=== PATIENT | female | born 1945 | race Native Hawaiian/Other Pacific Islander ===

== ENCOUNTER 2016-12-30 04:13 | Observation (INO) | payer MEDICARE, OTHER ==
[2016-12-30 04:14] VITALS: BMI 28.3
--- NOTE | 2016-12-30 05:01 | C.PDOC ---
History Of Present Illness Patient presents to the ED with complaints of chest pain, palpitations, and some shortness of breath upon waking up. Patient states she became concerned thus prompting visit but denies an fever or chills. Time Seen by Provider: 12/30/16 05:01 Chief Complaint (Nursing): Chest Pain History Per: Patient History/Exam Limitations: no limitations Onset/Duration Of Symptoms: Mins Current Symptoms Are (Timing): Still Present Severity: Mild Pain Scale Rating Of: 4 Quality: "Pain" Associated Symptoms: denies: Nausea, Diaphoresis Recent travel outside of the [place]: No Past Medical History Reviewed: Historical Data, Nursing Documentation, Vital Signs Vital Signs: Last Vital Signs Temp 97.5 F L 12/30/16 04:31 Pulse 78 12/30/16 05:04 Resp 16 12/30/16 04:31 BP 130/63 12/30/16 05:04 Pulse Ox 96 12/30/16 06:04 - Medical History PMH: Asthma, Atrial Fibrillation, Cardia Arrhythmia (atrial fib), Diabetes (169 by medics), Gall Bladder Disease (+cholelithiasis), HTN, Hypercholesterolemia, Hypothyroidism Family History: States: No Known Family Hx - Social History Hx Tobacco Use: No Hx Alcohol Use: No Hx Substance Use: No - Immunization History Hx Tetanus Toxoid Vaccination: No Hx Influenza Vaccination: No Hx Pneumococcal Vaccination: No Review Of Systems Constitutional: Negative for: Fever, Chills, Sweats Cardiovascular: Positive for: Chest Pain, Palpitations Respiratory: Positive for: Shortness of Breath. Negative for: Cough Gastrointestinal: Negative for: Nausea, Vomiting, Abdominal Pain, Diarrhea Genitourinary: Negative for: Dysuria Musculoskeletal: Negative for: Back Pain Skin: Negative for: Rash, Lesions, Jaundice Neurological: Negative for: Weakness Psych: Negative for: Anxiety Physical Exam - Physical Exam Appears: Non-toxic, No Acute Distress Skin: Warm, Dry Head: Normacephalic Eye(s): bilateral: Normal Inspection Oral Mucosa: Moist Neck: Trachea Midline, Supple Chest: Symmetrical, No Deformity Cardiovascular: Rhythm Irregular Respiratory: No Rales, No Rhonchi, No Stridor, No Wheezing Gastrointestinal/Abdominal: Soft, No Tenderness, No Distention, No Guarding, No Rebound Back: Normal Inspection Extremity: Normal ROM, No Tenderness Extremity: Bilateral: Atraumatic, Normal Color And Temperature Neurological/Psych: Oriented x3, Normal Speech, Normal Cognition Gait: Steady ED Course And Treatment - Laboratory Results Result Diagrams: 12/30/16 05:31 12/30/16 05:31 ECG: Interpreted By Me, Viewed By Me ECG Rhythm: Atrial Fibrillation (75), Nonspecific Changes O2 Sat by Pulse Oximetry: 96 (room air ) Pulse Ox Interpretation: Normal - Radiology CXR: Interpreted by Me, Viewed By Me CXR Interpretation: Yes: Other (unchanged from 09/22/16). No: Infiltrates, Fracture, Pnemothorax Disposition Discussed With Dr.: Tres Hameed Comment: accepted the pt on his service and took over the care at 6:25 AM Doctor Will See Patient In The: Hospital Counseled Patient/Family Regarding: Studies Performed, Diagnosis - Disposition Disposition: HOSPITALIZED Disposition Time: 05:01 Condition: FAIR - POA Present On Arrival: None - Clinical Impression Clinical Impression: Atrial fibrillation, Chest pain - Scribe Statement The provider has reviewed the documentation as recorded by the Scribe Isabel Dutta All medical record entries made by the Scribe were at my direction and personally dictated by me. I have reviewed the chart and agree that the record accurately reflects my personal performance of the history, physical exam, medical decision making, and the department course for this patient. I have also personally directed, reviewed, and agree with the discharge instructions and disposition. Decision To Admit - Pt Status Changed To: Hospital Disposition Of: Observation - . Bed Request Type: Telemetry Admitting Physician: Tres Hameed Patient Diagnosis: Chest pain, Atrial fibrillation
[2016-12-30] MEDS ORDERED: Aspirin 325 mg EC Tablets PO STA (05:08)
[2016-12-30 05:35] LABS: BASO # 0.1 K/uL (0.0-0.2); BASO % 1.3 % (0.0-2.0); EOS # 0.3 K/uL (0.0-0.7); EOS % 5.2 % (0.0-4.0); HEMATOCRIT 43.8 % (34.0-47.0); LYMPH # 2.1 K/uL (1.0-4.3); LYMPH % 36.4 % (20.0-40.0); MEAN CELL VOLUME 77.8 fL (81.0-99.0); MEAN CORPUSCULAR HEMOGLOBIN 24.9 pg (27.0-31.0); MEAN PLATELET VOLUME 10.3 fL (7.2-11.7); MONO # 0.8 K/uL (0.0-0.8); MONO % 14.1 % (0.0-10.0); NRBC % 0.1 % (0.0-2.0); RED CELL DISTRIBUTION WIDTH 14.5 % (11.5-14.5); WHITE BLOOD COUNT 5.6 K/uL (4.8-10.8)
[2016-12-30 05:41] LABS: INR 1.1
[2016-12-30] MEDS ORDERED: Aspirin 325 mg EC Tablets PO ONE (05:41)
[2016-12-30 05:50] LABS: CHLORIDE 102 mmol/L (98-107); SODIUM 140 mmol/L (132-148)
[2016-12-30 05:51] LABS: POTASSIUM 4.1 mmol/L (3.6-5.2)
[2016-12-30 05:53] LABS: ALB/GLOB RATIO 1.8 (1.0-2.1); ALKALINE PHOSPHATASE 34 U/L (38-126); AST/SGOT 47 U/L (14-36); BILIRUBIN,TOTAL 0.7 mg/dL (0.2-1.3); CARBON DIOXIDE 24 mmol/L (22-30); GFR AFRICAN-AMERICAN > 60; TOTAL PROTEIN 7.6 g/dL (6.3-8.3)
[2016-12-30 05:54] LABS: ALT/SGPT 49 U/L (9-52); BLOOD UREA NITROGEN 17 mg/dL (7-17); CALCIUM 7.7 mg/dl (8.6-10.4); GLUCOSE,RANDOM 133 mg/dL (65-105)
[2016-12-30 05:59] LABS: RBC URINE 1 /hpf (0-3); URINE BILIRUBIN NEGATIVE (NEGATIVE); URINE BLOOD NEGATIVE (NEGATIVE); URINE COLOR Colorless (YELLOW); URINE GLUCOSE (UA) NORMAL (Normal); URINE KETONE NEGATIVE (NEGATIVE); URINE LEUKOCYTE ESTERASE NEG Leu/uL (Negative); URINE PROTEIN NEGATIVE (NEGATIVE); URINE UROBILINOGEN NORMAL mg/dL (0.2-1.0)
[2016-12-30] MEDS: (Novolog) Insulin Aspart, Recombinant 100 u/ml 10 ml vial SC SCH ×4 (08:09→21:40)
--- NOTE | 2016-12-30 08:41 | RAD ---
PROCEDURE: CHEST RADIOGRAPH, 1 VIEW HISTORY: chest pain COMPARISON: 09/22/2016 FINDINGS: LUNGS: Mild venous congestion. Bibasilar airspace opacities which may be related to prominent breast shadows. PLEURA: No pneumothorax or pleural fluid seen. CARDIOVASCULAR: Normal. OSSEOUS STRUCTURES: No significant abnormalities. VISUALIZED UPPER ABDOMEN: Normal. OTHER FINDINGS: None. IMPRESSION: Mild venous congestion. Bibasilar airspace opacities which may be related to prominent breast shadows.
[2016-12-30] MEDS ORDERED: FISH OIL PO SCH (10:00)
[2016-12-30] MEDS ORDERED: Levothyroxine 25 MCG TAB PO SCH ×2 (10:00→22:00)
[2016-12-30] MEDS ORDERED: CALCIUM CARBONATE 1200 MG PO SCH (10:00)
[2016-12-30] MEDS ORDERED: Omega-3-Acid Ethyl Esters 1 GM Cap PO SCH (10:00)
[2016-12-30] MEDS ORDERED: OMEGA PO SCH (10:00)
[2016-12-30] MEDS ORDERED: Ergocalciferol 50,000 Intl Units Cap PO SCH (10:00)
[2016-12-30] MEDS ORDERED: FATTY ACIDS PO SCH (10:00)
[2016-12-30] MEDS ORDERED: Omega-3-Acid Ethyl Esters 1 GM Cap PO ONE ×2 (12:00→12:15)
--- NOTE | 2016-12-30 15:19 | CP.PCM.CON ---
History of Present Illness - History of Present Illness History of Present Illness: 71 year old with DM, HTN admitted with CP, no ekg changes, neg TNI, no OK, for EST as out pt. no dissection or PE clinically, neg EST 4 years ago Review of Systems - Constitutional Constitutional: Anorexia, Weakness - EENT Eyes: absent: Discharge Ears: absent: Ear Discharge, Dizziness Nose/Mouth/Throat: absent: Epistaxis - Cardiovascular Cardiovascular: Chest Pain, Chest Pain at Rest. absent: Acrocyanosis, Diaphoresis, Leg Edema, Palpitations, Syncope - Respiratory Respiratory: absent: Cough, Dyspnea, Hemoptysis - Gastrointestinal Gastrointestinal: absent: Abdominal Pain, Diarrhea, Vomiting - Genitourinary Genitourinary: absent: Change in Urinary Stream Past Patient History - Infectious Disease Hx of Infectious Diseases: None - Past Medical History & Family History Past Medical History?: Yes - Past Social History Smoking Status: Never Smoked - CARDIAC Hx Atrial Fibrillation: Yes Hx Cardia Arrhythmia: Yes (atrial fib) Hx Hypercholesterolemia: Yes Hx Hypertension: Yes - PULMONARY Hx Asthma: Yes (seasonal) - NEUROLOGICAL Hx Neurological Disorder: No - HEENT Hx HEENT Problems: No - RENAL Hx Chronic Kidney Disease: No - ENDOCRINE/METABOLIC Hx Hypothyroidism: Yes - HEMATOLOGICAL/ONCOLOGICAL Hx Blood Transfusions: Yes Hx Blood Transfusion Reaction: No - INTEGUMENTARY Hx Dermatological Problems: No - MUSCULOSKELETAL/RHEUMATOLOGICAL Hx Musculoskeletal Disorders: No Hx Falls: No - GASTROINTESTINAL Hx Gall Bladder Disease: Yes (+cholelithiasis) - GENITOURINARY/GYNECOLOGICAL Hx Reproductive Disorders: Yes (HEAVY MENSES/MYOMA/[id number]) - PSYCHIATRIC Hx Substance Use: No - SURGICAL HISTORY Other/Comment: THYROID BIOPSY - ANESTHESIA Hx Anesthesia: Yes Hx Anesthesia Reactions: No Hx Malignant Hyperthermia: No Meds Allergies/Adverse Reactions: Allergies Allergy/AdvReac Type Severity Reaction Status Date / Time No Known Allergies Allergy Verified 12/30/16 04:34 - Medications Medications: Current Medications Amlodipine Besylate (Norvasc) 5 mg PO DAILY [facility] Last Admin: 12/30/16 10:07 Dose: 5 mg Aspirin (Ecotrin) 81 mg PO DAILY [facility] Last Admin: 12/30/16 10:07 Dose: 81 mg Calcium Carbonate (Oscal) 500 mg PO BID [facility] Dabigatran (Pradaxa) 150 mg PO DAILY [facility] Last Admin: 12/30/16 10:07 Dose: 150 mg Ergocalciferol (Drisdol 50,000 Intl Units Cap) 1 cap PO QWK [facility] Last Admin: 12/30/16 10:07 Dose: 1 cap Famotidine (Pepcid) 20 mg PO HS PRN PRN Reason: Dyspepsia Insulin Aspart (Novolog) 0 unit SC ACHS [facility] PRN Reason: Protocol Last Admin: 12/30/16 12:18 Dose: Not Given Levothyroxine Sodium (Synthroid) 25 mcg PO HS [facility] Metformin HCl (Glucophage) 500 mg PO DAILY [facility] Last Admin: 12/30/16 10:07 Dose: 500 mg Hpxai-8-Purj Ethyl Esters (Lovaza) 1 gm PO DAILY [facility] Rosuvastatin Calcium (Crestor) 10 mg PO HS [facility] Physical Exam - Constitutional Appears: Non-toxic - Head Exam Head Exam: ATRAUMATIC - Eye Exam Eye Exam: EOMI - ENT Exam ENT Exam: Mucous Membranes Moist - Neck Exam Neck exam: Negative for: Lymphadenopathy, Thyromegaly - Respiratory Exam Respiratory Exam: Clear to Auscultation Bilateral. absent: Rales - Cardiovascular Exam Cardiovascular Exam: REGULAR RHYTHM, Systolic Murmur - GI/Abdominal Exam GI & Abdominal Exam: Normal Bowel Sounds. absent: Organomegaly - Rectal Exam Rectal Exam: Deferred - Extremities Exam Extremities exam: Positive for: normal capillary refill. Negative for: calf tenderness - Neurological Exam Neurological exam: Alert, Oriented x3 - Psychiatric Exam Psychiatric exam: Normal Mood - Skin Skin Exam: Dry Results - Vital Signs Recent Vital Signs: Last Vital Signs Temp 97.6 F 12/30/16 10:05 Pulse 84 12/30/16 10:05 Resp 20 12/30/16 10:05 BP 136/90 12/30/16 10:05 Pulse Ox 98 12/30/16 10:05 - Labs Result Diagrams: 12/30/16 05:31 12/30/16 05:31 Labs: Laboratory Results - last 24 hr 12/30/16 12/30/16 12/30/16 08:08 11:26 11:30 POC Glucose (mg/dL) 106 117 H Total Creatine Kinase 55 CK-MB (Mass) < 0.22 Troponin I, Quant < 0.0120 Assessment & Plan (1) Chest pain Status: Acute Comment: no OK or PE for EST as outpt (2) Diabetes Status: Chronic
--- NOTE | 2016-12-30 18:24 | CP.PCM.HP ---
History of Present Illness - History of Present Illness History of Present Illness: CC: chest pain Patient is an elderly mongolian female with PMh of atrial fibrillation, HTN who is comlaint with diet, medications and follow up, presents to the ED with complaints of chest pain upper sternal pressure like, associated with diaphoresis, palpitations, and some shortness of breath upon waking up.Pt had exertional dyspnea prior to this episode, Patient states she became concerned thus prompting visit but denies an fever or chills. Present on Admission - Present on Admission Any Indicators Present on Admission: Yes Past Patient History - Infectious Disease Hx of Infectious Diseases: None - Past Medical History & Family History Past Medical History?: Yes - Past Social History Smoking Status: Never Smoked - CARDIAC Hx Atrial Fibrillation: Yes Hx Cardia Arrhythmia: Yes (atrial fib) Hx Hypercholesterolemia: Yes Hx Hypertension: Yes - PULMONARY Hx Asthma: Yes (seasonal) - NEUROLOGICAL Hx Neurological Disorder: No - HEENT Hx HEENT Problems: No - RENAL Hx Chronic Kidney Disease: No - ENDOCRINE/METABOLIC Hx Hypothyroidism: Yes - HEMATOLOGICAL/ONCOLOGICAL Hx Blood Transfusions: Yes Hx Blood Transfusion Reaction: No - INTEGUMENTARY Hx Dermatological Problems: No - MUSCULOSKELETAL/RHEUMATOLOGICAL Hx Musculoskeletal Disorders: No Hx Falls: No - GASTROINTESTINAL Hx Gall Bladder Disease: Yes (+cholelithiasis) - GENITOURINARY/GYNECOLOGICAL Hx Reproductive Disorders: Yes (HEAVY MENSES/MYOMA/[id number]) - PSYCHIATRIC Hx Substance Use: No - SURGICAL HISTORY Other/Comment: THYROID BIOPSY - ANESTHESIA Hx Anesthesia: Yes Hx Anesthesia Reactions: No Hx Malignant Hyperthermia: No Meds Allergies/Adverse Reactions: Allergies Allergy/AdvReac Type Severity Reaction Status Date / Time No Known Allergies Allergy Verified 12/30/16 04:34 Physical Exam - Constitutional Appears: Well, No Acute Distress - Head Exam Head Exam: ATRAUMATIC, NORMAL INSPECTION, NORMOCEPHALIC - Eye Exam Eye Exam: EOMI, Normal appearance, PERRL Pupil Exam: NORMAL ACCOMODATION, PERRL - Respiratory Exam Respiratory Exam: Clear to Auscultation Bilateral, NORMAL BREATHING PATTERN - Cardiovascular Exam Cardiovascular Exam: Irregular Rhythm, +S1, +S2, Systolic Murmur - GI/Abdominal Exam GI & Abdominal Exam: Normal Bowel Sounds, Soft. absent: Tenderness - Neurological Exam Neurological exam: Alert, CN II-XII Intact, Normal Gait, Oriented x3, Reflexes Normal - Psychiatric Exam Psychiatric exam: Normal Affect, Normal Mood Results - Vital Signs Recent Vital Signs: Last Vital Signs Temp 97 F L 12/30/16 15:00 Pulse 82 12/30/16 15:00 Resp 20 12/30/16 15:00 BP 118/73 12/30/16 15:00 Pulse Ox 98 12/30/16 15:00 - Labs Result Diagrams: 12/30/16 05:31 12/30/16 05:31 Labs: Laboratory Results - last 24 hr 12/30/16 12/30/16 12/30/16 08:08 11:26 11:30 POC Glucose (mg/dL) 106 117 H Total Creatine Kinase 55 CK-MB (Mass) < 0.22 Troponin I, Quant < 0.0120 12/30/16 12/30/16 16:45 18:03 POC Glucose (mg/dL) 80 Total Creatine Kinase 56 CK-MB (Mass) Troponin I, Quant Assessment & Plan (1) Atrial fibrillation Status: Acute (2) Chest pain Status: Acute (3) Diabetes Status: Chronic
--- NOTE | 2016-12-30 20:13 | CARD ---
APPROVED REPORT EXAM: Two-dimensional and M-mode echocardiogram with Doppler and color Doppler. Other Information Quality : GoodRhythm : NSR INDICATION Atrial Fibrillation Chest Pain RISK FACTORS Hyperlipidemia Diabetes M-Mode DIMENSIONS RVDd1.72 (2.1-3.2cm)Left Atrium (MM)5.35 (2.5-4.0cm) IVSd1.02 (0.7-1.1cm)Aortic Root2.81 (2.2-3.7cm) LVDd5.74 (4.0-5.6cm)Aortic Cusp Exc.1.60 (1.5-2.0cm) PWd0.98 (0.7-1.1cm)FS (%) 31 % LVDs3.98 (2.0-3.8cm)LVEF (%)57 (>50%) Aortic Valve AoV Peak Rnzwkgpr804.1cm/Pat Peak GR.9mmHg Mitral Valve MV E Uixrzsng143.8cm/sMV A Mdvwbjgk92.8cm/sE/A ratio4.1 TDI E/Lateral E'0.0E/Medial E'0.0 Tricuspid Valve TR Peak Qcuaiqed314vy/sTR Peak Gr.[id number] LEFT VENTRICLE The left ventricle is normal size. There is normal left ventricular wall thickness. The left ventricular function is normal. The left ventricular ejection fraction is within the normal range. There is normal LV segmental wall motion. RIGHT VENTRICLE The right ventricle is normal size. There is normal right ventricular wall thickness. The right ventricular systolic function is normal. ATRIA The left atrium is moderately dilated. The right atrium is mildly dilated. The atrial septum is aneurysmal. AORTIC VALVE The aortic valve is not well visualized. There is trace aortic regurgitation. MITRAL VALVE The mitral valve is mildly thickened. TRICUSPID VALVE There is mild pulmonary hypertension. PULMONIC VALVE There is mild pulmonic valvular regurgitation. GREAT VESSELS The aortic root is normal in size. The IVC is normal in size and collapses >50% with inspiration. <Conclusion> The left ventricle is normal size. There is normal left ventricular wall thickness. The left ventricular function is normal. The left ventricular ejection fraction is within the normal range. There is normal LV segmental wall motion. There is mild pulmonary hypertension.
[2016-12-31] MEDS: (Novolog) Insulin Aspart, Recombinant 100 u/ml 10 ml vial SC SCH ×2 (08:00→12:00)
[2016-12-31 08:35] LABS: CHOLESTEROL 158 mg/dL (0-199)
[2016-12-31] MEDS ORDERED: Omega-3-Acid Ethyl Esters 1 GM Cap PO SCH (10:00)
--- NOTE | 2016-12-31 14:44 | CP.PCM.PN ---
Subjective - Date & Time of Evaluation Date of Evaluation: 12/31/16 Time of Evaluation: 12:00 - Subjective Subjective: No further chest pain, for stress test as outpatient Objective - Vital Signs/Intake and Output Vital Signs (last 24 hours): Temp Pulse Resp BP Pulse Ox 97.7 F 79 20 134/82 97 12/31/16 08:12 12/31/16 09:45 12/31/16 08:12 12/31/16 09:45 12/31/16 08:12 Intake and Output: 12/31/16 12/31/16 06:59 18:59 Intake Total 240 Balance 240 - Medications Medications: Current Medications Amlodipine Besylate (Norvasc) 5 mg PO DAILY [facility] Last Admin: 12/31/16 09:45 Dose: 5 mg Aspirin (Ecotrin) 81 mg PO DAILY [facility] Last Admin: 12/31/16 09:44 Dose: 81 mg Calcium Carbonate (Oscal) 500 mg PO BID [facility] Last Admin: 12/31/16 09:44 Dose: 500 mg Dabigatran (Pradaxa) 150 mg PO DAILY [facility] Last Admin: 12/31/16 09:44 Dose: 150 mg Ergocalciferol (Drisdol 50,000 Intl Units Cap) 1 cap PO QWK [facility] Last Admin: 12/30/16 10:07 Dose: 1 cap Famotidine (Pepcid) 20 mg PO HS PRN PRN Reason: Dyspepsia Insulin Aspart (Novolog) 0 unit SC ACHS [facility] PRN Reason: Protocol Last Admin: 12/31/16 12:00 Dose: Not Given Levothyroxine Sodium (Synthroid) 25 mcg PO HS [facility] Last Admin: 12/30/16 21:51 Dose: 25 mcg Metformin HCl (Glucophage) 500 mg PO DAILY [facility] Last Admin: 12/31/16 09:45 Dose: 500 mg Zpnyn-8-[id number] Ethyl Esters (Lovaza) 1 gm PO DAILY [facility] Last Admin: 12/31/16 09:44 Dose: 1 gm Rosuvastatin Calcium (Crestor) 10 mg PO HS [facility] Last Admin: 12/30/16 21:51 Dose: 10 mg - Labs Labs: PT 12.3 SECONDS (9.7-12.2) H 12/30/16 05:31 INR 1.1 12/30/16 05:31 APTT 56 SECONDS (21-34) H 12/30/16 05:31 - Constitutional Appears: Non-toxic - Head Exam Head Exam: ATRAUMATIC - Eye Exam Eye Exam: EOMI - ENT Exam ENT Exam: Mucous Membranes Moist - Neck Exam Neck Exam: absent: Lymphadenopathy, Thyromegaly - Respiratory Exam Respiratory Exam: Clear to Ausculation Bilateral. absent: Rales - Cardiovascular Exam Cardiovascular Exam: REGULAR RHYTHM, Murmur - GI/Abdominal Exam GI & Abdominal Exam: Normal Bowel Sounds. absent: Organomegaly - Rectal Exam Rectal Exam: Deferred - Extremities Exam Extremities Exam: Normal Capillary Refill. absent: Calf Tenderness - Neurological Exam Neurological Exam: Alert, Oriented x3 - Psychiatric Exam Psychiatric exam: Normal Mood - Skin Skin Exam: Dry Assessment and Plan (1) Chest pain Status: Acute (2) Diabetes Status: Chronic
[2016-12-31 16:19] VITALS: BP 114/69; PULSE 68; RESP 18; TEMP 97.6; O2SAT 96
--- NOTE | 2016-12-31 23:09 | CP.PCM.DIS ---
Provider - Provider Date of Admission: 12/30/16 06:22 Attending physician: Tres Hameed MD Time Spent in preparation of Discharge (in minutes): 25 Hospital Course - Lab Results Lab Results: Most Recent Lab Values WBC 5.6 K/uL (4.8-10.8) 12/30/16 05:31 RBC 5.62 Mil/uL (3.80-5.20) H 12/30/16 05:31 Hgb 14.0 g/dL (11.0-16.0) 12/30/16 05:31 Hct 43.8 % (34.0-47.0) 12/30/16 05:31 MCV 77.8 fL (81.0-99.0) L 12/30/16 05:31 MCH 24.9 pg (27.0-31.0) L 12/30/16 05:31 MCHC 32.0 g/dL (33.0-37.0) L 12/30/16 05:31 RDW 14.5 % (11.5-14.5) 12/30/16 05:31 Plt Count 179 K/uL (130-400) 12/30/16 05:31 MPV 10.3 fL (7.2-11.7) 12/30/16 05:31 Neut % (Auto) 43.0 % (50.0-75.0) L 12/30/16 05:31 Lymph % (Auto) 36.4 % (20.0-40.0) 12/30/16 05:31 [place] % (Auto) 14.1 % (0.0-10.0) H 12/30/16 05:31 Eos % (Auto) 5.2 % (0.0-4.0) H 12/30/16 05:31 Baso % (Auto) 1.3 % (0.0-2.0) 12/30/16 05:31 Neut # 2.4 K/uL (1.8-7.0) 12/30/16 05:31 Lymph # 2.1 K/uL (1.0-4.3) 12/30/16 05:31 [place] # 0.8 K/uL (0.0-0.8) 12/30/16 05:31 Eos # 0.3 K/uL (0.0-0.7) 12/30/16 05:31 Baso # 0.1 K/uL (0.0-0.2) 12/30/16 05:31 PT 12.3 SECONDS (9.7-12.2) H 12/30/16 05:31 INR 1.1 12/30/16 05:31 APTT 56 SECONDS (21-34) H 12/30/16 05:31 Sodium 140 mmol/L (132-148) 12/30/16 05:31 Potassium 4.1 mmol/L (3.6-5.2) 12/30/16 05:31 Chloride 102 mmol/L (98-107) 12/30/16 05:31 Carbon Dioxide 24 mmol/L (22-30) 12/30/16 05:31 Anion Gap 18 (10-20) 12/30/16 05:31 BUN 17 mg/dL (7-17) 12/30/16 05:31 Creatinine 0.8 MG/DL (0.7-1.2) 12/30/16 05:31 Est GFR ( Amer) > 60 12/30/16 05:31 Est GFR (Non-Af Amer) > 60 12/30/16 05:31 POC Glucose (mg/dL) 107 mg/dL (65-110) 12/31/16 11:13 Random Glucose 133 mg/dL (65-105) H 12/30/16 05:31 Calcium 7.7 mg/dl (8.6-10.4) L 12/30/16 05:31 Total Bilirubin 0.7 mg/dL (0.2-1.3) 12/30/16 05:31 AST 47 U/L (14-36) H D 12/30/16 05:31 ALT 49 U/L (9-52) 12/30/16 05:31 Alkaline Phosphatase 34 U/L (38-126) L 12/30/16 05:31 Total Creatine Kinase 48 U/L (30-135) 12/30/16 23:56 CK-MB (Mass) < 0.22 ng/mL (0.0-3.38) 12/30/16 23:56 Troponin I < 0.0120 ng/mL (0.00-0.120) 12/30/16 05:31 Troponin I, Quant < 0.0120 ng/mL (0.00-0.120) 12/30/16 23:56 Total Protein 7.6 g/dL (6.3-8.3) 12/30/16 05:31 Albumin 4.9 g/dL (3.5-5.0) 12/30/16 05:31 Globulin 2.7 gm/dL (2.2-3.9) 12/30/16 05:31 Albumin/Globulin Ratio 1.8 (1.0-2.1) 12/30/16 05:31 Triglycerides 164 mg/dL (0-149) H 12/31/16 08:06 Cholesterol 158 mg/dL (0-199) 12/31/16 08:06 LDL Cholesterol Direct 85 mg/dL (0-129) 12/31/16 08:06 HDL Cholesterol 44 mg/dL (30-70) 12/31/16 08:06 Urine Color Colorless (YELLOW) 12/30/16 05:54 Urine Clarity Clear (Clear) 12/30/16 05:54 Urine pH 7.0 (5.0-8.0) 12/30/16 05:54 Ur Specific [place] 1.006 (1.003-1.030) 12/30/16 05:54 Urine Protein Negative mg/dL (NEGATIVE) 12/30/16 05:54 Urine Glucose (UA) Normal mg/dL (Normal) 12/30/16 05:54 Urine Ketones Negative mg/dL (NEGATIVE) 12/30/16 05:54 Urine Blood Negative (NEGATIVE) 12/30/16 05:54 Urine Nitrate Negative (NEGATIVE) 12/30/16 05:54 Urine Bilirubin Negative (NEGATIVE) 12/30/16 05:54 Urine Urobilinogen Normal mg/dL (0.2-1.0) 12/30/16 05:54 Ur Leukocyte Esterase Neg [place]/uL (Negative) 12/30/16 05:54 Urine RBC (Auto) 1 /hpf (0-3) 12/30/16 05:54 - Hospital Course Hospital Course: Pt seen and examined, pt has No further chest pain, for stress test as outpatient pt is stable for discharge Discharge Exam - Head Exam Head Exam: ATRAUMATIC - Eye Exam Eye Exam: EOMI, Normal appearance - ENT Exam ENT Exam: Mucous Membranes Moist - Respiratory Exam Respiratory Exam: Clear to PA & Lateral - Cardiovascular Exam Cardiovascular Exam: Irregular Rhythm, +S1, +S2, Systolic Murmur - GI/Abdominal Exam GI & Abdominal Exam: Normal Bowel Sounds - Neurological Exam Neurological exam: Alert, CN II-XII Intact, Normal Gait, Oriented x3, Reflexes Normal - Psychiatric Exam Psychiatric exam: Normal Affect, Normal Mood - Skin Skin Exam: Dry, Intact, Normal Color, Warm Discharge Plan - Follow Up Plan Condition: FAIR Disposition: HOME/ ROUTINE Instructions: Atrial Flutter (DC), Atrial Fibrillation (DC), Chest Pain (DC), Diabetes Mellitus Type 2 in Adults (DC) Additional Instructions: Follow up with Dr. Hameed in 1 week. Referrals: Tres Hameed MD [Staff Provider] -
--- NOTE | 2017-01-01 18:34 | CARD ---
APPROVED REPORT EKG Measurement Heart [id number] <Conclusion> Atrial fibrillation Abnormal ECG
== END 2016-12-31 16:24 | disposition home or self-care (01) ==
LOC: C.ER 04:13 → C.6T 06:22
PROVIDERS: ADMIT Internal Medicine; ATTEND Internal Medicine
DX: I48.91 Unspecified atrial fibrillation (principal); R07.9 Chest pain, unspecified; E11.9 Type 2 diabetes mellitus without complications; I10 Essential (primary) hypertension; E78.00 Pure hypercholesterolemia, unspecified; J45.909 Unspecified asthma, uncomplicated; E03.9 Hypothyroidism, unspecified
CPT/HCPCS: 36415; 71010; 80053; 80061; 81001; 82948; 83036; 84484; 85025; 85610; 85730; 93005; 93306; 99285; G0378